=== PATIENT | female | born 1990 | race Two or more races ===

== ENCOUNTER 2019-03-20 17:02 | Emergency (ER) | payer MEDICAID ==
[~2019-03-20] VITALS: Ht 154.9 cm; Wt 68.0 kg
[2019-03-20 17:20] VITALS: BP 141/86
[2019-03-20 17:53] LABS: Urine Bacteria FEW /hpf (None Seen); Urine Blood 1+ /uL (Negative); Urine Specific Gravity 1.005 (1.001-1.035); Urine WBC 4 /hpf (0 - 5)
== END 2019-03-20 18:50 | disposition left against medical advice (07) ==
LOC: ER 17:02
DX: R30.0 Dysuria (principal); Z53.21 Procedure and treatment not carried out due to patient leaving prior to being seen by health care provider
CPT/HCPCS: 81001

== ENCOUNTER 2019-03-20 21:34 | Emergency (ER) | payer MEDICAID ==
[~2019-03-20] VITALS: Ht 154.9 cm; Wt 68.0 kg
[2019-03-20 21:58] VITALS: BP 130/84
[2019-03-20 22:31] LABS: Urine Bacteria FEW /hpf (None Seen); Urine Blood TRACE /uL (Negative); Urine Specific Gravity 1.008 (1.001-1.035); Urine WBC 5 /hpf (0 - 5)
== END 2019-03-21 04:06 | disposition home or self-care (01) ==
LOC: ER 21:35
DX: B37.3 Candidiasis of vulva and vagina (principal); N39.0 Urinary tract infection, site not specified; R42 Dizziness and giddiness; R51 Headache; J45.909 Unspecified asthma, uncomplicated
CPT/HCPCS: 81001

== ENCOUNTER 2020-03-09 20:59 | Emergency (ER) | payer MEDICAID ==
[~2020-03-09] VITALS: Ht 157.5 cm; Wt 70.8 kg
[2020-03-09] MEDS ORDERED: EPINEPHrine HCL 1 MG/1 ML AMP SC ONE (21:15)
[2020-03-09] MEDS ORDERED: diphenhdrAMINE HCL 25 MG CAP PO ONE (21:15)
[2020-03-09] MEDS ORDERED: ALBUTEROL SULF 2.5 MG/0.5ML(0.5%) NEB SOLN NEB ONE (21:15)
[2020-03-09] MEDS ORDERED: IPRATROPIUM BROM 0.5 MG/2.5ML INH SOL NEB ONE (21:15)
[2020-03-09] MEDS ORDERED: methylPREDNISolone SOD SUCC 125 MG/2 ML VL IM ONE (21:15)
[2020-03-09 23:32] VITALS: BP 123/74
== END 2020-03-10 00:27 | disposition home or self-care (01) ==
LOC: ER 21:00
DX: L29.9 Pruritus, unspecified (principal); J45.909 Unspecified asthma, uncomplicated
CPT/HCPCS: 94640; 96372; 99284; J0171; J2930; J7644

== ENCOUNTER 2020-08-31 12:51 | Emergency (ER) | payer MEDICAID ==
[~2020-08-31] VITALS: Ht 157.5 cm; Wt 63.5 kg
[2020-08-31] MEDS ORDERED: fentaNYL Drip 2500mCg/250mlNS 250 ML IV ONE (15:36)
[2020-08-31 16:16] VITALS: BP 136/89
== END 2020-08-31 20:48 | disposition left against medical advice (07) ==
LOC: ER 12:51
DX: M25.561 Pain in right knee (principal); Z53.21 Procedure and treatment not carried out due to patient leaving prior to being seen by health care provider
CPT/HCPCS: 73562

== ENCOUNTER 2024-01-13 10:05 | Inpatient (IN) | payer MEDICAID ==
[~2024-01-13] VITALS: Ht 157.5 cm; Wt 71.5 kg
[2024-01-13 10:59] LABS: Basophils # (auto) 0 10 ^3/uL (0-0.2); Basophils % (auto) 0.7 % (0.0-2.0); Eosinophils # (auto) 0.2 10 ^3/uL (0-0.8); Eosinophils % (auto) 4.8 % (0.0-7.0); Hematocrit 41.4 % (36.0-46.0); Hemoglobin 13.9 g/dL (12.2-16.2); Lymphocytes # (auto) 1.6 10 ^3/uL (0.4-5.4); Lymphocytes % (auto) 38.4 % (10.0-50.0); Mean Corpuscular Hemoglobin 32.3 pg (28.0-32.0); Mean Corpuscular Hgb Conc. 33.6 g/dL (32.0-36.0); Mean Corpuscular Volume 95.9 fL (80.0-100.0); Monocytes # (auto) 0.4 10 ^3/uL (0-1.3); Monocytes % (auto) 9.6 % (0.0-12.0); Neutrophils # (auto) 1.9 10 ^3/uL (1.6-8.6); Neutrophils % (auto) 46.5 % (37.0-80.0); Nucleated Red Blood Cells % 0.1 %; Red Blood Cells 4.31 10^6/uL (4.0-5.20); Red Cell Distribution Width 13.1 % (11.8-14.3); White Blood Cell 4.1 10^3/uL (4.4-10.8)
[2024-01-13 11:13] LABS: Chloride 105 mmol/L (98-107); Potassium 4.1 mmol/L (3.5-5.1); Sodium 141 mmol/L (136-145)
[2024-01-13 11:14] LABS: Anion Gap 10 (5-15); Calcium 10.1 mg/dL (8.5-10.1); Carbon Dioxide 26 mmol/L (20-30)
[2024-01-13 11:19] LABS: BUN/Creatinine Ratio 13.4 (10.0-20.0); Blood Urea Nitrogen 9 mg/dL (9-23); Glucose 89 mg/dL (74-106)
[2024-01-13 11:37] LABS: Lipase 37 U/L (12-53)
[2024-01-13 11:50] LABS: Urine Bacteria FEW /hpf (None Seen); Urine Blood 2+ /uL (Negative); Urine Clarity Turbid (Clear); Urine Color Light-Orange (Yellow); Urine Protein, UAD TRACE (Negative); Urine Urobilinogen Normal (Negative); Urine WBC 14 /hpf (0 - 5); Urine pH 6.5 (5.0-9.0)
[2024-01-13] MEDS: cefTRIAXone 1GM/50ML D5W 50 ML IV ONE (12:30)
[2024-01-13] MEDS: SODIUM CHLORIDE 0.9% 1,000 ML IV ONE ×2 (13:22→13:26)
[2024-01-13] MEDS ORDERED: ONDANSETRON HCL 4 MG/2 ML VIAL IV PRN (15:00)
[2024-01-13] MEDS ORDERED: DOCUSATE SOD 100 MG CAP PO PRN (15:00)
[2024-01-13] MEDS ORDERED: MORPHINE SULFATE INJ 2 MG/ml SYRG IV PRN (15:00)
[2024-01-13] MEDS: SODIUM CHLORIDE 0.9% 1,000 ML IV SCH (15:13)
[2024-01-13] MEDS: DICYCLOMINE HCL (10MG/ML) 2 ML AMPULE IM ONE (15:13)
[2024-01-13] MEDS: PANTOPRAZOLE 40 MG/10 ML VIAL INJ IV ONE (15:28)
[2024-01-13 17:01] VITALS: PULSE 92; RESP 20; O2SAT 96
[2024-01-13 17:28] LABS: INR 1.13 (0.9-1.15); Prothrombin Time 11.9 sec (9.3-11.8)
[2024-01-13] MEDS: DICYCLOMINE HCL 10 MG CAP PO SCH (21:03)
[2024-01-13] MEDS: metroNIDAZOLE 500MG/100ML 100 ML IV SCH (21:03)
[2024-01-14] VITALS (8 sets, daily range): BP systolic 98–148; BP diastolic 69–95; PULSE 56–71; RESP 17–20; TEMP 97.2–98.3; O2SAT 96–100
[2024-01-14 07:19] LABS: Basophils # (auto) 0 10 ^3/uL (0-0.2); Basophils % (auto) 0.5 % (0.0-2.0); Eosinophils # (auto) 0.4 10 ^3/uL (0-0.8); Eosinophils % (auto) 8.3 % (0.0-7.0); Lymphocytes # (auto) 1.9 10 ^3/uL (0.4-5.4); Lymphocytes % (auto) 38.2 % (10.0-50.0); Mean Corpuscular Hemoglobin 32.7 pg (28.0-32.0); Mean Corpuscular Hgb Conc. 34.2 g/dL (32.0-36.0); Mean Corpuscular Volume 95.3 fL (80.0-100.0); Monocytes # (auto) 0.5 10 ^3/uL (0-1.3); Monocytes % (auto) 9.1 % (0.0-12.0); Neutrophils # (auto) 2.2 10 ^3/uL (1.6-8.6); Neutrophils % (auto) 43.9 % (37.0-80.0); Red Blood Cells 3.67 10^6/uL (4.0-5.20); Red Cell Distribution Width 12.4 % (11.8-14.3)
[2024-01-14 07:41] LABS: Alanine Aminotransferase 19 U/L (7-40); Albumin 3.6 g/dL (3.2-4.8); Alkaline Phosphatase 38 U/L (46-116); Anion Gap 7 (5-15); Aspartate Aminotransferase 15 U/L (13-40); BUN/Creatinine Ratio 13.1 (10.0-20.0); Blood Urea Nitrogen 8 mg/dL (9-23); Calcium 8.6 mg/dL (8.7-10.4); Carbon Dioxide 23 mmol/L (20-30); Chloride 108 mmol/L (98-107); Glucose 91 mg/dL (74-106); Lipase 35 U/L (12-53); Potassium 3.6 mmol/L (3.5-5.1); Sodium 138 mmol/L (136-145)
[2024-01-14 07:42] LABS: Bilirubin, Total 0.9 mg/dL (0.2-1.0); Total Protein 5.9 g/dL (5.7-8.2)
[2024-01-14] MEDS ORDERED: cefTRIAXone 1GM/50ML D5W 50 ML IV SCH (09:00)
[2024-01-14] MEDS: PANTOPRAZOLE 40 MG/10 ML VIAL INJ IV SCH (09:49)
[2024-01-14] MEDS: cefTRIAXone 1GM/50ML D5W 50 ML IV SCH (09:50)
[2024-01-15 05:00] VITALS: BP 117/87; PULSE 62; RESP 20; TEMP 97.9; O2SAT 97
[2024-01-15 07:22] LABS: Basophils # (auto) 0 10 ^3/uL (0-0.2); Basophils % (auto) 0.5 % (0.0-2.0); Eosinophils # (auto) 0.4 10 ^3/uL (0-0.8); Eosinophils % (auto) 8.6 % (0.0-7.0); Hematocrit 36.7 % (36.0-46.0); Hemoglobin 12.4 g/dL (12.2-16.2); Lymphocytes # (auto) 1.7 10 ^3/uL (0.4-5.4); Lymphocytes % (auto) 34.8 % (10.0-50.0); Mean Corpuscular Hemoglobin 32.3 pg (28.0-32.0); Mean Corpuscular Hgb Conc. 33.7 g/dL (32.0-36.0); Mean Corpuscular Volume 95.8 fL (80.0-100.0); Monocytes # (auto) 0.3 10 ^3/uL (0-1.3); Monocytes % (auto) 7.2 % (0.0-12.0); Neutrophils # (auto) 2.3 10 ^3/uL (1.6-8.6); Neutrophils % (auto) 48.9 % (37.0-80.0); Nucleated Red Blood Cells % 0.1 %; Red Blood Cells 3.83 10^6/uL (4.0-5.20); Red Cell Distribution Width 12.4 % (11.8-14.3); White Blood Cell 4.7 10^3/uL (4.4-10.8)
[2024-01-15 07:28] LABS: Anion Gap 7 (5-15); Calcium 9.1 mg/dL (8.5-10.1); Carbon Dioxide 24 mmol/L (20-30); Chloride 108 mmol/L (98-107); Potassium 3.4 mmol/L (3.5-5.1); Sodium 139 mmol/L (136-145)
[2024-01-15 07:34] LABS: BUN/Creatinine Ratio 14.1 (10.0-20.0); Blood Urea Nitrogen 9 mg/dL (9-23); Glucose 90 mg/dL (74-106)
[2024-01-15 08:00] VITALS: PULSE 69; RESP 18; O2SAT 98
[2024-01-15 09:24] VITALS: BP 130/97; PULSE 69; RESP 18; TEMP 98.4; O2SAT 98
[2024-01-15 11:43] VITALS: BP 123/86; PULSE 82; RESP 20; TEMP 98.5; O2SAT 96
[2024-01-15] MEDS ORDERED: MET500T PO (12:14)
[2024-01-15] MEDS ORDERED: DICY10CA PO (12:14)
[2024-01-15] MEDS ORDERED: AUG875T PO (12:14)
[2024-01-15 12:39] VITALS: BP 130/97; PULSE 69; RESP 18; TEMP 98.4; O2SAT 98
== END 2024-01-15 13:45 | disposition home or self-care (01) ==
LOC: ER 10:05 → OVERFLOW 16:41 → WEST WING 01-14 02:23
PROVIDERS: ADMIT Nurse Practitioner Family; ATTEND Nurse Practitioner Family
DX: K80.70 Calculus of gallbladder and bile duct without cholecystitis without obstruction (principal); E86.0 Dehydration; N30.00 Acute cystitis without hematuria; K52.9 Noninfective gastroenteritis and colitis, unspecified; J45.909 Unspecified asthma, uncomplicated
CPT/HCPCS: 36415; 76705; 80048; 80053; 81001; 83690; 84702; 85025; 85610; 86850; 86900; 86901; 87086; C9113; G0378; J3490